=== PATIENT | female | born 1980 | race Caucasian/White ===

== ENCOUNTER → 2020-11-02 13:56 | Outpatient (CLI) | payer OTHER, SELFPAY ==
--- NOTE | ~2020-11-02 | MM_ITS ---
EXAMINATION: MM screening ivette BI w enrique HISTORY: Screening TECHNIQUE: Craniocaudal and mediolateral oblique 3-D tomosynthesis images were obtained and synthetic 2-D images were generated. CAD analysis was submitted and interpreted. COMPARISON: Comparison to multiple prior studies sequentially, with oldest reviewed study dated 06/05. BREAST PARENCHYMAL COMPOSITION: There are scattered areas of fibroglandular density. FINDINGS: There is focal asymmetry centrally in the left breast on CC view. The right breast is stabl e without evidence for malignancy. IMPRESSION: 1. New focal left breast asymmetry centrally on CC view. 2. Additional mammographic views and possible breast ultrasound are recommended. BI-RADS Category 0: Incomplete: Needs additional imaging evaluation. Reviewed, dictated and finalized at location A. IMPRESSION: 1. New focal left breast asymmetry centrally on CC view. 2. Additional mammographic views and possible breast ultrasound are recommended . BI-RADS Category 0: Incomplete: Needs additional imaging evaluation.
== END ==
DX: Z12.31 Encounter for screening mammogram for malignant neoplasm of breast (principal); R92.8 Other abnormal and inconclusive findings on diagnostic imaging of breast
CPT/HCPCS: 77063; 77067

== ENCOUNTER 2020-12-01 07:56 | Outpatient (CLI) | payer OTHER, SELFPAY ==
--- NOTE | ~2020-12-01 | MMUS_ITS ---
EXAMINATION: MM diagnostic mammo unilat LT, US breast LT complete HISTORY: New focal left breast asymmetry reported on 11/02/2020 screening mammogram TECHNIQUE: Additional 3-D tomosynthesis images of the left breast were performed and synthetic 2-D im ages were generated. Rolled medial and rolled lateral craniocaudal views of left breast. CAD analysis was submitted and interpreted. High resolution complete left breast ultrasound was performed. COMPARISON: 11/02/2020 bilateral digital screening mammogram FINDINGS: MAMMOGRAPHIC FINDINGS: No reproducible mass or architectural distortion is detected. ULTRASOUND: No suspicious mass or shadowing is detected. IMPRESSION: 1. No mammographic evidence of malignancy 2. Routine mammographic screening is recommended. BI-RADS Category 1: Negative Reviewed, dictated and finalized at location A. IMPRESSION: 1. No mammographic evidence of malignancy 2. Routine mammographic screening is recommended. BI-RADS Category 1: Negative
== END 2020-12-01 07:57 ==
DX: N63.0 Unspecified lump in unspecified breast (principal)
CPT/HCPCS: 76641; 77065